=== PATIENT | female | born 1950 | race African-American/Black ===

== ENCOUNTER 2019-06-02 14:59 | Inpatient (IN) ==
[2019-06-02] MEDS ORDERED: D50W SYRINGE IV PRN (17:30)
--- NOTE | 2019-06-02 18:15 | Diag Imaging Result Doc PS360 ---
EXAM: CT HEAD W/O CONTRAST 06/02/2019 HISTORY: mental status change TECHNIQUE: This exam was performed using automated exposure control, adjustment of mA or kV according to patient size, and/or use of iterative reconstruction technique. COMMENT: There is no evidence of mass effect, bleed, or abnormal extra-axial fluid collection. There are no previous studies. IMPRESSION: No evidence of acute intracranial disease. Electronically signed by Eliazar Dawkins 06/02/2019 6:13 PM
[2019-06-02 19:55] LABS: BASO# 0.01 X1000 (0.0-0.2); BASO% 0.2 % (0.0-0.8); EOS# 0.14 X1000 (0.0-0.7); EOS% 2.2 % (0.0-10.0); HEMATOCRIT 36.7 % (37.0-47.0); HEMOGLOBIN 11.2 g/dL (12.0-16.0); LYMPH# 1.74 X1000 (1.2-3.4); MCH 26.4 PG (27-31); MCHC 30.5 g/dL (33-37); MCV 86.4 FL (81-99); MONO# 0.38 X1000 (0.11-0.59); MONO% 5.9 % (1.7-9.3); MPV 11.2 FL (7.4-10.4); NEUT# 4.18 X1000 (1.4-6.5); NEUT% 64.7 % (42.2-75.2); PLT 179 X1000 (130-400); RBC 4.25 XMIL (4.2-5.4); RDW 14.1 % (11.5-14.5); WBC 6.45 X1000 (4.8-10.8)
[2019-06-02] MEDS: MOTRIN PO SCH (20:04)
[2019-06-02 20:14] LABS: AGAP 11; ALB/GLOB RATIO 0.8; ALBUMIN 3.8 g/dL (3.5-5.0); ALKALINE PHOSPHATASE 105 U/L (32-104); BUN 13 mg/dL (8-22); CALCIUM 9.5 mg/dL (8.8-10.2); CHLORIDE 99 mmol/L (98-107); COSMO 277; ESTIMATED GFR > 60; GLUCOSE 152 mg/dL (70-104); GOT 17 U/L (10-30); GPT 14 U/L (10-36); POTASSIUM 4.1 mmol/L (3.5-5.1); SODIUM 137 mmol/L (136-145); TCO2 27 mmol/L (25-35); TOTAL BILIRUBIN 0.24 mg/dL (0.20-1.00); TOTAL PROTEIN 8.4 g/dL (6.3-8.3)
[2019-06-02] MEDS: HUMALOG SUBQ SCH (21:41)
[2019-06-02] MEDS: LOPRESSOR PO SCH (21:41)
[2019-06-02] MEDS: PRINZIDE 20/12.5MG PO SCH (21:41)
[2019-06-03] MEDS: PRILOSEC PO SCH (06:10)
[2019-06-03] MEDS: HUMALOG SUBQ SCH ×4 (06:12→21:28)
[2019-06-03] MEDS: GLUCOPHAGE PO SCH ×2 (09:06→18:44)
[2019-06-03] MEDS: LOPRESSOR PO SCH ×2 (09:06→21:43)
[2019-06-03] MEDS: PRINZIDE 20/12.5MG PO SCH ×2 (09:06→21:43)
[2019-06-03] MEDS: ZOLOFT PO SCH (09:06)
[2019-06-03] MEDS: MOTRIN PO SCH ×4 (09:06→21:43)
[2019-06-03] MEDS: AMARYL PO SCH ×3 (09:06→18:44)
--- NOTE | 2019-06-03 12:58 | PROGRESS NOTE ---
DATE: 06/03/2019 Ms. Calles is somewhat dizzy this morning. Her heart and lungs sound okay. She is in regular sinus rhythm. Blood sugars are still fluctuating. She has minimal dizzy spells. Her CT scan of the brain is negative. Electrolytes are normal. cc: Anthony Cota MD
--- NOTE | 2019-06-03 14:57 | HISTORY AND PHYSICAL ---
HISTORY OF PRESENT ILLNESS: Ms. Calles who is a 68-year-old female comes to the office with complaining about intermittent mental confusion. She has been hallucinating. She says she sees animals many times when there is nothing, she also hears some noises also which are not there. She has a known case of hypertension, diabetes, obesity, possible sleep apnea, mild hypothyroidism. She has been complaining about intermittent dizziness. MEDICATIONS: Include lisinopril HCT 20/12.5 b.i.d., glimepiride 4 mg b.i.d., metformin 1000 mg b.i.d., metoprolol tartrate 100 mg b.i.d., Prilosec 20 mg daily, and sertraline 100 mg daily. PAST SURGICAL HISTORY: Reveals history of cholecystectomy and hysterectomy. REVIEW OF SYSTEMS: She has intermittent headaches and dizziness. No history of seizures or visual disturbances or sphincter disturbances. PHYSICAL EXAMINATION: GENERAL: The patient is alert and oriented at present. VITAL SIGNS: Reveal temperature normal, pulse 62 per minute, respiratory rate 18 per minute, blood pressure 152/62. HEENT: Head normocephalic. Pupils PERRLA. Fundus examination reveals grade 2 change of hypertensive retinopathy. Neck supple. JVP normal. ENT examination unremarkable. There is no evidence of lymphadenopathy, thyroid enlargement, pedal edema, calf tenderness, anemia, cyanosis or clubbing. Pedal pulses well felt. BREAST: Normal chest. Normal inspection. LUNGS: Clear on auscultation. PMI cannot be located. HEART: Sounds normal. No murmur, gallop or rub noted. ABDOMEN: Nondistended. Hernial orifices normal. No guarding, rigidity, free fluid, masses, or organomegaly. Bowel sounds normal. RECTAL: Deferred INVESTMENT ANALYST: Higher functions normal. Cranial nerves normal. Motor and sensory system examination unremarkable. Deep tendon reflexes normal. Plantars downgoing. Skull and spine examination normal for age. No cerebellar signs or signs of meningeal irritation. Local motor exam and skin exam unremarkable except for some arthritis in the knee joints. IMPRESSION: Change in the mental status, which is intermittent. The patient has hallucinations. We will try to get her worked up. cc: Anthony Cota MD
[2019-06-03] MEDS: CHLORASEPTIC SPRAY MT PRN ×2 (16:23→21:42)
--- NOTE | 2019-06-03 22:40 | EEG REPORT ---
DATE: 06/02/2019 EEG #: [id number]. COMMENT: This is a digitally recorded EEG done portably on a 68-year-old patient with reported altered mental state, cognitive impairment. FINDINGS: During waking, low amplitude polymorphic and rhythmic theta compose the background symmetrically. There is low amplitude poorly sustained 9-10 Hz posterior rhythm present bilaterally with uncertain reactivity to eye opening. Photic stimulation did not significantly alter the record. Drowsing occurred with the appearance of more generalized slowing. Stage 2 sleep was not recorded. No definite epileptiform discharge was identified. INTERPRETATION: Normal EEG. CORRELATION: The absence of epileptiform discharges does not exclude a clinical diagnosis of seizure, but there is nothing on this record to suggest the presence of a seizure disorder. The EEG is often normal in early stages of dementia. cc: MD Anthony Steiner III, MD
[2019-06-04] MEDS: HUMALOG SUBQ SCH (06:20)
[2019-06-04] MEDS: CHLORASEPTIC SPRAY MT PRN (06:35)
[2019-06-04] MEDS: PRILOSEC PO SCH (06:35)
[2019-06-04] MEDS: PRINZIDE 20/12.5MG PO SCH (08:41)
[2019-06-04] MEDS: ZOLOFT PO SCH (08:41)
[2019-06-04] MEDS: GLUCOPHAGE PO SCH (08:41)
[2019-06-04] MEDS: LOPRESSOR PO SCH (08:41)
[2019-06-04 08:42] VITALS: BP 148/64
[2019-06-04] MEDS: AMARYL PO SCH (08:42)
[2019-06-04] MEDS: MOTRIN PO SCH (08:42)
--- NOTE | 2019-06-04 11:55 | PROGRESS NOTE ---
DATE: 06/04/2019 Ms. Calles is feeling better. Her blood sugars are stable. EEG was normal. CT scan was unremarkable. She is much more alert. I am going to discharge her today. cc: Anthony Cota MD
--- NOTE | 2019-06-04 22:00 | Carotid Study ---
DATE: 06/03/2019 REFERRING PHYSICIAN: Anthony Cota. READING PHYSICIAN: Alen Crisostomo MD. GUEST SERVICES ASSISTANT: Mj. INDICATION: Altered mental status, hallucinations, confusion. FINDINGS: There is no significant plaque in either carotid system. There antegrade vertebral flow bilaterally. INTERPRETATION: Unremarkable carotid imaging study. cc: MD Anthony Walker MD
--- NOTE | 2019-06-06 15:50 | DISCHARGE SUMMARY ---
ADMISSION DATE: 06/02/2019 DISCHARGE DATE: 06/04/2019 Ms. Calles is a 68-year-old female was admitted with change in mental status. CT scan of the brain did not reveal any evidence of intracranial disease. The EEG was unremarkable. It was normal. Carotid flow studies did not reveal any hemodynamically significant disease. CBC showed anemia, hemoglobin 11.2, hematocrit 36.7. Electrolytes are normal. Blood sugars were fluctuating and her BUN and creatinine unremarkable. Alkaline phosphatase was 105, protein was 8.4, slightly high. Her vitamin B12 level is 415. Thyroid status was normal. Total T3 was 0.8 and that is the lower limit of normal range. COURSE IN THE HOSPITAL: She was checked regularly and she started getting more alert. She said she had intermittent confusion at home with hallucinations, visual and auditory, but she did not have any evidence here. Physical exam was unremarkable and she had normal telemetry exam. We decided to discharge her. It is possible that mental status change could be related to her fluctuating blood sugar or could be related to sleep apnea syndrome. She does use a CPAP at home. We will discharge her today. cc: Anthony Cota MD
== END 2019-06-04 10:07 | disposition home or self-care (01) | DRG 155 ==
LOC: DIRADM 14:59 → EDIPHOLD 17:01 → 1N 21:17
PROVIDERS: ADMIT Internal Medicine; ATTEND Internal Medicine